=== PATIENT | male | born 1975 | race African-American/Black ===

== ENCOUNTER 2018-11-04 20:54 | Emergency (ER) | payer SELFPAY, MEDICAID ==
[~2018-11-04] VITALS: Ht 172.7 cm; Wt 79.4 kg
[2018-11-04 20:58] VITALS: BP 128/70
--- NOTE | 2018-11-04 20:58 | NUR ---
ED Nurse Note: pt brought in by deputy c/o left hand swelling and left face swelling with pain. Pt states he noticed them two days ago and it started hurting and progressively worsen. denies injury or trauma. Noted reddned lesion 2cm x 2cm on left mandibular area and left hand edema. +tenderness. no drainage at this time. will cont monitor.
[2018-11-04] MEDS ORDERED: Bactrim-DS 1 tab ORAL ONE ×2 (21:15→22:00)
--- NOTE | 2018-11-04 21:19 | Emergency Room Report ---
History of Present Illness General Chief Complaint: Medical Clearance Source: Patient Present Illness HPI This is a 43-year-old male who is right-hand dominant. He is brought in by police for medical clearance. He complaining of redness and swelling to the left cheek and left hand area. Onset for last few days. Unknown trauma. No fever chills but no nausea no vomiting. Pain is 7 out of 10. No drainage. Allergies: Coded Allergies: No Known Allergies (Unverified , 11/04/18) Patient History Past Medical History: see triage record, old chart reviewed Past Surgical History: other Pertinent Family History: none Social History: Denies: smoking Immunizations: other Reviewed Nursing Documentation: PMH: Agreed; PSxH: Agreed Nursing Documentation-PMH Past Medical History: No Stated History Review of Systems Eye: Denies: eye pain, blurred vision ENT: Denies: ear pain, nose congestion, throat swelling Respiratory: Denies: cough, shortness of breath Cardiovascular: Denies: chest pain, palpitations Gastrointestinal: Denies: abdominal pain, diarrhea, nausea, vomiting Musculoskeletal: Denies: back pain, joint pain Skin: Reports: rash Neurological: Denies: headache, numbness Endocrine: Denies: increased thirst, increased urine Hematologic/Lymphatic: Denies: easy bruising All Other Systems: negative except mentioned in HPI Physical Exam Vital Signs Date Time Temp Pulse Resp B/P (MAP) Pulse Ox O2 Delivery O2 Flow Rate FiO2 11/04/18 20:55 98.1 100 18 123/70 98 Room Air vitals normal Sp02 EP Interpretation: reviewed, normal General Appearance: well appearing, no apparent distress, alert Head: normocephalic, atraumatic Eyes: bilateral eye PERRL, bilateral eye EOMI ENT: hearing grossly normal, normal pharynx, other - Left jaw: There is a erythematous area 2 cm. His indurated with swelling. Neck: full range of motion, supple, no meningismus Respiratory: chest non-tender, lungs clear, normal breath sounds Cardiovascular #1: regular rate, rhythm, no murmur Gastrointestinal: normal bowel sounds, non tender, no mass, no organomegaly, no bruit, non-distended Musculoskeletal: back normal, gait/station normal, normal range of motion, swelling - Left hand: There is swelling to the dorsum the left hand. Mild erythema. No crepitance. Full range of motion. Sensation normal. Neurologic: alert, oriented x3 Psychiatric: mood/affect normal Skin: warm/dry Procedures Incision and Drainage Incision and Drainage : Consent: Verbal Site: Left jaw Blade Size: 11 I & D Procedure: betadine prep Wound Location: face Anesthesia: 1% Lidocaine Volume Anesthetic (ccs): 2 Patient Tolerated: Well Complications: None Progress Area clean with Betadine. Local anesthetic with 1% lidocaine without epinephrine. I made a 1 cm incision. There was moderate amount of pus expressed. Likely area broken up. Patient tolerable procedure without a problem. Medical Decision Making Diagnostic Impression: Primary Impression: Abscess of face Additional Impressions: Cellulitis of left hand excluding fingers and thumb Methamphetamine abuse ER Course Patient presents with an abscess to his face and and cellulitis. Probably secondary to meth abuse and poor hygiene. No evidence of deep infection. No evidence any fracture. We'll discharge home. Other X-Ray Diagnostic Results Other X-Ray Diagnostic Results : X-Ray ordered: Left hand x-rays # of Views/Limited Vs Complete: 3 View Indication: Pain EP Interpretation: Yes Interpretation: no dislocation, no soft tissue swelling, no fractures Impression: No acute disease Electronically Signed by: Dejan Manning MD Last Vital Signs Date Time Temp Pulse Resp B/P (MAP) Pulse Ox O2 Delivery O2 Flow Rate FiO2 11/04/18 20:55 98.1 100 18 123/70 98 Room Air Status: improved Disposition: D/C TO [facility] [place] Condition: Stable Scripts Trimethoprim/Sulfamethoxazole 160/800* (BACTRIM DS TABLET*) 1 Each Tablet 1 TAB ORAL Q12H, #14 TAB 0 Refills Prov: Dejan Manning MD 11/04/18 Additional Instructions: Keep wound clean. Recheck in 2 days. Return if symptom worsen. Dejan Manning MD Nov 04, 2018 21:19
[2018-11-04] MEDS ORDERED: BACTRIM DS TAB1 EAC1 ORAL (22:12)
[2018-11-04 22:15] VITALS: BP 128/70
--- NOTE | 2018-11-04 22:15 | NUR ---
ED Nurse Note: patient is being discharged from ED alert and oriented x4, ambulatory with a steady gait, VSS. patient acknowledged the need to follow up with [facility] to recheck wound. Id band removed, all belongings sent with patient, prescriptions in hand. at time of discharge Dr. Manning drained the abscess on his left cheek, patient was applied a dressing.
--- NOTE | 2018-11-05 11:41 | Diagnostic Imaging Report ---
Indication: left hand pain. Findings: 3 views of the left hand were obtained. Normal alignment is demonstrated. No acute fractures, erosions, or periosteal reaction are seen. Soft tissues a markedly edematous. Impression: No acute fracture. Soft tissue swelling.
== END 2018-11-04 22:15 ==
LOC: EMR 21:10
DX: L02.01 Cutaneous abscess of face (principal); L03.114 Cellulitis of left upper limb; F15.10 Other stimulant abuse, uncomplicated
CPT/HCPCS: 99283